=== PATIENT | male | born 1990 | race Caucasian/White ===

== ENCOUNTER 2018-03-22 09:22 | Emergency (ER) | payer SELFPAY ==
--- NOTE | 2018-03-22 09:22 | DT_ITS ---
This patient was seen during an EMR downtime March 20, 2018 - March 27, 2018. This patient may have a combination of paper and electronic documentation or all paper documentation. All documentation is viewable within the e-chart portion of [facility] for each patient visit.
--- NOTE | 2018-03-22 10:04 | RAD_ITS ---
STUDY: X-RAY CHEST REASON FOR EXAM: Male, 28 years old. Cough and fever TECHNIQUE: PA and lateral views of the chest. COMPARISON: None. FINDINGS: The lungs are clear and expanded. There is no demonstrated pleural abnormality. Normal size heart. Normal mediastinum and michelle. Normal visualized pulmonary arteries. Normal visualized aortic arch and descending thoracic aorta. Normal visualized thoracic spine. Normal visualized ribs, clavicles, and shoulders. There is no demonstrated abnormality of the visualized soft tissue structures of the upper abdomen. RAD/Chest PA and Lateral IMPRESSION: Normal x-ray examination of the chest. Electronically Signed: Siddharth Herndon DO at 10:20 EDT Tel , Service support ,
== END 2018-03-22 11:45 | disposition home or self-care (01) ==
LOC: ED 03-23 16:21
PROVIDERS: Emergency Provider Emergency Medicine
DX: J20.9 Acute bronchitis, unspecified (principal); F17.200 Nicotine dependence, unspecified, uncomplicated
CPT/HCPCS: 71046; 99283

== ENCOUNTER 2018-04-04 10:09 | Emergency (ER) | payer SELFPAY ==
[2018-04-04 10:10] VITALS: BP 145/78; PULSE 88; RESP 18; TEMP 36.4; O2SAT 98; BMI 31.2
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
[2018-04-04] MEDS: Ketorolac 60 MG/2 ML Vial IM (10:50)
== END 2018-04-04 11:11 | disposition home or self-care (01) ==
LOC: ED 10:41
PROVIDERS: Emergency Provider Emergency Medicine
DX: S29.012A Strain of muscle and tendon of back wall of thorax, initial encounter (principal); X50.0XXA Overexertion from strenuous movement or load, initial encounter; Y93.9 Activity, unspecified; Y92.89 Other specified places as the place of occurrence of the external cause; Y99.9 Unspecified external cause status; F17.200 Nicotine dependence, unspecified, uncomplicated
CPT/HCPCS: 99282

== ENCOUNTER 2019-08-05 18:57 | Emergency (ER) | payer SELFPAY ==
[2019-08-05 18:58] VITALS: BP 147/99; PULSE 79; RESP 15; TEMP 36.9; O2SAT 100; BMI 30.2
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
--- NOTE | 2019-08-05 19:25 | ED.RN ---
[facility] NON PROFIT DIRECTOR IN W/PT AND FAMILY.
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
[2019-08-05 20:34] VITALS: BP 144/90; PULSE 87; RESP 18
== END 2019-08-05 20:45 | disposition home or self-care (01) ==
PROVIDERS: Emergency Provider Emergency Medicine
DX: S06.0X0A Concussion without loss of consciousness, initial encounter (principal); S16.1XXA Strain of muscle, fascia and tendon at neck level, initial encounter; S30.811A Abrasion of abdominal wall, initial encounter; V89.2XXA Person injured in unspecified motor-vehicle accident, traffic, initial encounter; Y93.89 Activity, other specified; Y92.410 Unspecified street and highway as the place of occurrence of the external cause; R05 Cough; F17.210 Nicotine dependence, cigarettes, uncomplicated
CPT/HCPCS: 70450; 72125; 99283

== ENCOUNTER 2019-12-12 20:04 | Emergency (ER) | payer SELFPAY ==
[2019-12-12 20:05] VITALS: BP 146/87; PULSE 100; RESP 18; TEMP 36.7; O2SAT 99; BMI 29.8
--- NOTE | 2019-12-12 20:37 | ED.VIS.DENTA ---
History of Present Illness Chief Complaint: Dental Informant: Patient Onset: Days - 3-4 Context: Gradual Onset Timing: Continuous Quality: ache Location: right maxillary canine Current Severity: Moderate Maximum Severity: Moderate Worsened by: palpation/eating Relieved by: - - leaving alone Associated Symptoms: - - No associated fevers, jaw or facial swelling or neck pain Narrative: Patient has a pre-existing filling in this tooth. He does not think he lost it. No injury. Thinks it may be getting infected and wants to get on an antibiotic and follow-up with a dentist. Past Medical History - Allergies and Home Meds Allergies/Adverse Reactions: Allergies iodine Allergy (Verified 12/12/19 20:07) Swelling shrimp Allergy (Verified 12/12/19 20:07) Hives Primary Care Physician: Care Physician,No Primary [Primary Care Provider] - Past Medical History: None Lives: Spouse/ Significant Other Smoking Status: Current every day smoker Review of Systems General: Denies: Chills, Fever, Sweats ENT: Reports: - - Dental pain. No mouth or facial swelling.. Denies: Bilateral ear pain, Rhinorrhea, Sore throat Respiratory: Denies: Dyspnea, Cough Gastrointestinal: Denies: Nausea, Vomiting Physical Exam Vital Signs/Narrative: Vital Signs Temp Pulse Resp BP Pulse Ox 12/12/19 20:05 98.0 F 100 18 146/87 H 99 Inital Vital Signs reviewed: Yes General: Well nourished, Well developed Head: Normocephalic, Atraumatic ENT: Moist mucous membranes, No rhinorrhea Mouth/Throat: Normal inspection lips/gums, Normal oral mucosa, No focal abscess, Normal posterior oropharynx, No sublingual edema, Tenderness on tooth percussion - Tooth #6. Negative for: Dental trauma, Dental abscess, Trismus Neck: Supple, No lymphadenopathy, Nontender Respiratory: No distress Neurological: Alert, Oriented x3, Cranial nerves II-XII grossly intact, Normal Strength, Normal Sensation Psychological: Normal affect, Normal Mood Diagnostic/Tx/Re-eval - Medical Decision Making Patient states I am not here for pain pills. Not allergic to any antibiotics that he knows of, started on amoxicillin and given a referral to a dental clinic. He is comfortable with that plan and appreciative. ED Disposition - Plan for ED Patient: Disposition: Home or Assisted Living Diagnosis: Odontalgia Instructions: Dental Pain Prescriptions: Amoxicillin 875 mg PO BID #20 tab Transmission Status: Pending to [id number] [place] Referrals: Dentist,Your [STAFF PHYSICIAN] - As soon as possible
[2019-12-12] MEDS: AMOXICILLIN 500 MG CAPSULE PO (21:18)
[2019-12-12 21:19] VITALS: BP 138/84
== END 2019-12-12 21:21 | disposition home or self-care (01) ==
PROVIDERS: Emergency Provider Emergency Medicine
DX: K08.89 Other specified disorders of teeth and supporting structures (principal); F17.200 Nicotine dependence, unspecified, uncomplicated
CPT/HCPCS: 99283